=== PATIENT | female | born 1955 | race Caucasian/White ===

== ENCOUNTER → 2018-07-20 09:40 | Outpatient (REF) | payer MEDICARE, MEDICAID, SELFPAY ==
[2018-07-20 19:50] LABS: Anion Gap 8.1 mmol/L (3-11); BUN 12 mg/dL (7-18); CO2 29.9 mmol/L (21.0-32.0); CREATININE 1.05 mg/dL (0.55-1.02); Calcium 9.1 mg/dL (8.5-10.1); Chloride 101 mmol/L (98-107); Estimated GFR 53.46 (mL/min/1.73m2); Glucose 136 mg/dL (70-100); Potassium 3.3 mmol/L (3.5-5.1); Sodium 139 mmol/L (136-145)
== END ==
LOC: NCHCN 09:40
PROVIDERS: PCP Family Medicine; Visit Provider Family Medicine
DX: E87.6 Hypokalemia (principal)
CPT/HCPCS: 80048

== ENCOUNTER 2018-08-17 09:46 | Outpatient (REF) | payer MEDICARE, MEDICAID, SELFPAY ==
[2018-08-18 09:16] LABS: Anion Gap 7.1 mmol/L (3-11); BUN 15 mg/dL (7-18); CO2 33.9 mmol/L (21.0-32.0); CREATININE 1.08 mg/dL (0.55-1.02); Calcium 9.2 mg/dL (8.5-10.1); Chloride 101 mmol/L (98-107); Estimated GFR 51.58 (mL/min/1.73m2); Glucose 111 mg/dL (70-100); Potassium 3.9 mmol/L (3.5-5.1); Sodium 142 mmol/L (136-145)
== END 2018-08-17 10:06 ==
LOC: NCHCN 09:46
PROVIDERS: PCP Family Medicine; Visit Provider Family Medicine
DX: E87.6 Hypokalemia (principal)
CPT/HCPCS: 80048

== ENCOUNTER 2019-05-17 08:12 | Outpatient (REF) | payer MEDICARE, MEDICAID, SELFPAY ==
[2019-05-17 12:55] LABS: HCT 41.9 % (36.0-46.0); HGB 13.9 g/dL (12.0-15.5); Mean Corp. HGB Concentration 33.2 g/dL (32.0-36.0); Mean Corpuscular Hemoglobin 29.9 pg (27.0-33.0); Mean Corpuscular Volume 90.1 fL (80-95); Mean Platelet Volume 11.1 fL (8.0-11.0); Platelet Count 257 x1000/uL (130-400); RBC 4.65 m/cumm (4.00-5.20); RBC Distribution Width 13.2 % (11.7-14.6); White Blood Cell Count 6.74 k/cumm (4.4-10.8)
[2019-05-17 13:30] LABS: Hemoglobin A1C 5.8 % (4.5-6.2)
[2019-05-17 14:05] LABS: ALT 30 U/L (12-78); AST 27 U/L (15-37); Albumin 3.9 g/dL (3.4-5.0); Alkaline Phosphatase 61 U/L (46-116); Anion Gap 7.9 mmol/L (3-11); BUN 22 mg/dL (7-18); CO2 32.1 mmol/L (21.0-32.0); CREATININE 0.92 mg/dL (0.55-1.02); Calcium 9.2 mg/dL (8.5-10.1); Chloride 101 mmol/L (98-107); Glucose 87 mg/dL (70-100); Potassium 3.7 mmol/L (3.5-5.1); Sodium 141 mmol/L (136-145); TSH (W/Ref FT4) 2.83 uIU/mL (0.358-3.74); Total Protein 7.4 g/dL (6.4-8.2)
[2019-05-17 14:19] LABS: Bilirubin, Total 0.4 mg/dL (0.2-1.0)
== END 2019-05-17 08:32 ==
LOC: NCHCN 08:12
PROVIDERS: PCP Family Medicine; Visit Provider Family Medicine
DX: I10 Essential (primary) hypertension (principal); R73.01 Impaired fasting glucose; E06.3 Autoimmune thyroiditis
CPT/HCPCS: 80053; 85027; 83036; 84443

== ENCOUNTER 2019-06-08 10:12 | Emergency (ER) | payer MEDICARE, MEDICAID, SELFPAY ==
[2019-06-08 10:16] VITALS: BP 159/82; PULSE 78; RESP 16; TEMP 36.6; O2SAT 99
--- NOTE | 2019-06-08 10:34 | ED.GENADUL_ITS ---
Discharge Plan Disposition Patient Disposition: HOME Condition: Improving Discharge Details Chief Complaint: GenMedical Clinical Impression: Anxiety Primary Care Provider: Yumi Palam ED Provider: Jorje Chun Home Meds and New Rx's Prescriptions: Continued garlic 1 EACH tablet 1 ea PO RF: 0 omeprazole 40 MG capsule,delayed release(DR/EC) 40 mg PO DAILY Qty: 60 RF: 3 hydrochlorothiazide 25 MG tablet 25 mg PO DAILY RF: 0 ranitidine HCl 150 MG tablet 150 mg PO HS Qty: 30 RF: 0 clonazepam [Klonopin] 1 MG tablet 1 mg PO PRN PRNRF: 0 simvastatin 40 MG tablet 40 mg PO QPM RF: 0 bupropion HCl [Wellbutrin] 100 MG tablet 300 mg PO DAILY RF: 0 omega-3 fatty acids-fish oil 1 EACH capsule 1 ea PO DAILY RF: 0 buprenorphine-naloxone [Suboxone] 1 EACH film 1 film PO DAILY RF: 0 Discharge Instructions Instructions: Anxiety (ED) Additional Instructions: Please follow-up with Dr. Palma for recheck. As we discussed, you need to increase stress management in your life. Perform daily exercise and breathing exercises. Continue your regular medications. Return for any acute concern Medical Decision Making 63-year-old female with a great deal of anxiety due to family court dates afternoon, stress at home, stress regarding son's medical problems. She is noted some accompanying elevated blood pressures recently up to 160/100. Today she presented with a great deal of anxiety, was able to calm during my exam, with a blood pressure of the corrected to 148/87. Given 1 of her scheduled clonazepam with improvement. Do not feel that she requires further work-up. She will continue working to decrease stress in her life. She will follow-up with her outpatient resources. She is stable and improved HPI General Mode of arrival: ambulatory . Date/Time Provider Initiated Documentation: 06/08/19 10:17 . Limitations to Documentation: no limitations . Information obtained by: patient . History of Present Illness 63 year old F presents to the emergency department with the chief complaint of High anxiety, elevated blood pressure, described as moderate and similar to prior episodes, Quality is described as constant, Patient started experiencing this day(s) and it has been constant. No relieving factors improve symptom(s), No exacerbating factors reported . Patient notes denies chest pain, headaches, shortness of breath and weakness. Patient did receive the following treatments prior to arrival, none Related Data Home Medications Medication Instructions Recorded Confirmed bupropion HCl [Wellbutrin] 300 mg PO DAILY 07/13/13 05/10/18 clonazepam [Klonopin] 1 mg PO PRN PRN 07/13/13 05/10/18 simvastatin 40 mg PO QPM 07/13/13 05/10/18 garlic 1 ea PO NS 04/12/18 omeprazole 40 mg PO DAILY #60 tab-cap 04/12/18 05/10/18 buprenorphine-naloxone [Suboxone] 1 film PO DAILY 05/06/18 05/10/18 omega-3 fatty acids-fish oil 1 ea PO DAILY 05/06/18 05/10/18 hydrochlorothiazide 25 mg PO DAILY tab-cap NS 05/31/18 ranitidine HCl 150 mg PO HS #30 tab 06/02/18 Previous Rx's Medication Instructions Recorded ranitidine HCl 150 mg PO HS #30 tab 06/02/18 Allergies Allergy/AdvReac Type Severity Reaction Status Date / Time No Known Allergies Allergy Unverified 05/10/18 06:22 General Stated Complaint: GenMedical BILLIE: 3 Review of Systems Review of Systems No chest pain, no abdominal pain, no headache. Increased stress at home and due to family court date [facility] Medical History Abdominal pain ADHD Allergic rhinitis Anxiety Chronic low back pain Depression Fibrocystic breast disease Frequent headaches GERD (gastroesophageal reflux disease) Jorgito's thyroiditis Hepatitis B Impaired fasting glucose Opioid dependence Osteoarthritis Quit using tobacco in remote past Urinary frequency Urinary, incontinence, stress female Surgical History Abdominal hysterectomy Colonoscopy - MAC (05/10/18) EGD - MAC (05/10/18) excision, back, lipoma, 2000 nasal septoplasty 1999 r breast biopsy 1990 right hip replacement 08/2003 tubal ligation Social History Smoking/Tobacco Use Status: Former Tobacco Use Alcohol Intake: never Drug use: Occasionally Substance use type: marijuana Exam Narrative Exam Narrative: GEN: awake, alert, oriented 3. Pleasant, well groomed, interactive. HEAD: Normocephalic, atraumatic ENT: Mucous membranes moist, oropharynx unremarkable, External ear exam unremarkable EYES: PERRL, EOMI NECK: Full ROM, no DARIUS, no menigismus CHEST/RESP: Nontender, clear to auscultation bilateral, no wheeze/rhonchi/rales CARDIOVASCULAR: RRR, no murmur, rub jose armando. 2+ Rad pulse bilateral ABDOMEN: Soft, nontender, no mass. +Bowel sounds EXT: Full ROM, no edema, no rash Neuro: Grossly normal neurologic exam, conversant, interactive. Psych: Speech fluent, thoughts congruent, affect anxious Course Vital Signs Temperature 36.6 C 06/08/19 10:16 Pulse 78 06/08/19 10:16 Respiratory Rate 16 06/08/19 10:16 Blood Pressure 159/82 H 06/08/19 10:16 Pulse Oximetry 99 06/08/19 10:16 Temperature 36.6 C 06/08/19 10:16 Temperature Source Skin 06/08/19 10:16 Pulse 78 06/08/19 10:16 Respiratory Rate 16 06/08/19 10:16 Respiratory Effort Non-Labored 06/08/19 10:19 Respiratory Depth Normal 06/08/19 10:19 Respiratory Pattern Normal 06/08/19 10:19 Blood Pressure 159/82 H 06/08/19 10:16 Blood Pressure Position Sitting 06/08/19 10:16 Pulse Oximetry 99 06/08/19 10:16 Oxygen Delivery Method Room Air 06/08/19 10:16 Oxygen Flow Rate 0 06/08/19 10:16
[2019-06-08 10:39] VITALS: BP 147/87
[2019-06-08] MEDS: clonazePAM 1 MG TAB PO (10:39)
[2019-06-08 11:13] VITALS: BP 130/80; PULSE 65; RESP 16; O2SAT 100
== END 2019-06-08 11:13 | disposition home or self-care (01) ==
PROVIDERS: Emergency Provider Emergency Medicine; PCP Family Medicine
DX: F41.9 Anxiety disorder, unspecified (principal); Z65.8 Other specified problems related to psychosocial circumstances
CPT/HCPCS: 99283

== ENCOUNTER 2019-12-06 15:37 | Outpatient (REF) | payer MEDICARE, MEDICAID, SELFPAY ==
[2019-12-14 03:23] LABS: 2-OH-Ethyl-Flurazepam Negative ng/mL (Cutoff: 100); 7-NH-Flunitrazepam Negative ng/mL (Cutoff: 50); Alpha OH-Alprazolam Negative ng/mL (Cutoff: 100); Alpha-OH-Triazolam Negative ng/mL (Cutoff: 100); Lorazepam Negative ng/mL (Cutoff: 100); Temazepam Negative ng/mL (Cutoff: 100)
== END 2019-12-06 15:57 ==
LOC: NCHCN 15:37
PROVIDERS: PCP Family Medicine; Visit Provider Family Medicine
DX: F11.20 Opioid dependence, uncomplicated (principal)
CPT/HCPCS: 80346

== ENCOUNTER 2020-04-18 01:30 | Outpatient (CLI) | payer MEDICARE, MEDICAID, SELFPAY ==
--- NOTE | 2020-04-18 | DI.MAMMO_ITS ---
EXAM: MG MAMMO SCREENING CLINICAL HISTORY: SCREENING,[facility],Z00.00 TECHNIQUE: Bilateral full field digital CC and MLO mammographic images were obtained with 3D tomosyn thesis and utilizing computer aided detection (CAD). COMPARISON: Available for comparison. FINDINGS: Masses/Architectural Distortion: None seen. Stable nodularity is seen in the left retroareolar region . The asymmetric breast tissue in the supra-areolar region on the right MLO view is unchanged. Microcalcifications: No suspicious pleomorphic-type are seen. Skin Thickening/Nipple Retraction: None. IMPRESSION: 1. No significant interval change with no specific features of malignancy noted. 2. Unless there is more urgent need, screening mammography is recommended, as per [employer] guidelines. BI-RADS Category 2 - Benign Findings Breast Density - Category B - Scattered areas of fibroglandular density A negative radiographic report should not delay biopsy if a dominant or clinically suspicious mass is present. Up to ten percent of cancers are not identified on mammography. A negative report may reinforce clinical impression. Adenosis and dense breasts may obscure an underlying neoplasm. False positive reports average 6 to 10%. Patient will receive a letter notifying them of these results.
== END 2020-04-18 01:50 ==
PROVIDERS: PCP Family Medicine; Visit Provider Family Medicine
DX: Z12.31 Encounter for screening mammogram for malignant neoplasm of breast (principal)
CPT/HCPCS: 77063; 77067

== ENCOUNTER 2020-04-24 21:55 | Outpatient (REF) | payer MEDICARE, MEDICAID, SELFPAY ==
[2020-04-24 15:31] LABS: Anion Gap 7.5 mmol/L (3-11); BUN 17 mg/dL (7-18); CO2 30.5 mmol/L (21.0-32.0); CREATININE 1.04 mg/dL (0.55-1.02); Chloride 99 mmol/L (98-107); Estimated GFR 53.69 (mL/min/1.73m2); Glucose 107 mg/dL (74-106); Potassium 3.4 mmol/L (3.5-5.1); Sodium 137 mmol/L (136-145); TSH (W/Ref FT4) 2.97 uIU/mL (0.36-3.74)
[2020-04-25 11:15] LABS: Hepatitis C Ab w Rflx HCV PCR Negative (Negative)
[2020-04-25 11:18] LABS: HIV-1/2 Ag & Ab Screen Negative (Negative)
== END 2020-04-24 22:15 ==
LOC: NCHCN 21:55
PROVIDERS: PCP Family Medicine; Visit Provider Family Medicine
DX: I10 Essential (primary) hypertension (principal); R73.03 Prediabetes; E06.3 Autoimmune thyroiditis; Z11.3 Encounter for screening for infections with a predominantly sexual mode of transmission; Z11.4 Encounter for screening for human immunodeficiency virus [HIV]
CPT/HCPCS: 80048; 86803; 87389; 83036; 84443

== ENCOUNTER 2020-09-11 21:21 | Outpatient (REF) | payer MEDICARE, MEDICAID, SELFPAY ==
[2020-09-11 21:14] LABS: Hemoglobin A1C 5.9 % (<5.7)
[2020-09-11 21:17] LABS: Anion Gap 8.1 mmol/L (3-11); BUN 14 mg/dL (7-18); CO2 30.9 mmol/L (21.0-32.0); CREATININE 1.12 mg/dL (0.55-1.02); Calcium 9.4 mg/dL (8.5-10.1); Chloride 101 mmol/L (98-107); Estimated GFR 49.13 (mL/min/1.73m2); Glucose 73 mg/dL (74-106); Sodium 140 mmol/L (136-145); TSH (W/Ref FT4) 2.77 uIU/mL (0.36-3.74)
== END 2020-09-11 21:41 ==
LOC: NCHCN 21:21
PROVIDERS: PCP Family Medicine; Visit Provider Family Medicine
DX: I10 Essential (primary) hypertension (principal); R73.03 Prediabetes; E06.3 Autoimmune thyroiditis
CPT/HCPCS: 80048; 83036; 84443

== ENCOUNTER 2020-12-04 18:45 | Outpatient (REF) | payer MEDICARE, MEDICAID, SELFPAY ==
[2020-12-10 07:12] LABS: Benzoylecgonine 205 ng/mL (Cutoff: 50); Cocaine Negative ng/mL (Cutoff: 50); Cocaine Interpretation Positive.
== END 2020-12-04 19:05 ==
LOC: NCHCN 18:45
PROVIDERS: PCP Family Medicine; Visit Provider Family Medicine
DX: F11.20 Opioid dependence, uncomplicated (principal)
CPT/HCPCS: 80353

== ENCOUNTER 2021-01-14 18:49 | Emergency (ER) | payer MEDICARE, MEDICAID, SELFPAY ==
[2021-01-14] VITALS (7 sets, daily range): BP systolic 104–161; BP diastolic 71–79; PULSE 69–89; RESP 12–18; TEMP 37; O2SAT 96–100
--- NOTE | 2021-01-14 19:00 | RT.EKG_ITS ---
APPROVED REPORT Exam: Resting ECG Patient Location: E HR:81 bpm ECG Measurements Heart Rate 81 AXIS AR 226 P 54 QRSd 103 QRS 38 QT 386 T 45 QTc 449 Conclusion Sinus rhythm...normal P axis, V-rate 60- 99 Prolonged AR interval...AR >220, V-rate 50- 90
--- NOTE | 2021-01-14 19:26 | W.ED.GENAD ---
Discharge Plan Disposition Patient Disposition: HOME Condition: Stable Discharge Details Clinical Impression: Anxiety, Heart palpitations, Prolonged P-R interval Primary Care Provider: Yumi Palma ED Provider: Alexander Santillan Home Meds and New Rx's Prescriptions: Continued omeprazole 40 MG capsule,delayed release(DR/EC) 40 mg PO DAILY Qty: 60 RF: 3 hydrochlorothiazide 25 MG tablet 25 mg PO DAILY RF: 0 clonazepam [Klonopin] 1 MG tablet 1 mg PO TID PRNRF: 0 simvastatin 40 MG tablet 40 mg PO QPM RF: 0 bupropion HCl [Wellbutrin] 100 MG tablet 300 mg PO DAILY RF: 0 potassium chloride 20 mEq Tablet Extended Release 20 meq PO BID RF: 0 methylphenidate HCl 10 mg Tablet 10 mg PO BID RF: 0 omega-3 fatty acids-fish oil 1 EACH capsule 1 ea PO DAILY RF: 0 buprenorphine-naloxone [Suboxone] 1 EACH film 8 film PO DAILY RF: 0 Discharge Instructions Instructions: Heart Palpitations (ED), Anxiety (ED) Additional Instructions: Please follow-up with your primary care physician. You should have a outpatient cardiac nurse specialist assessment. Return to the ER immediately for any worsening or new concerning symptoms. Referrals: Yumi Palma MD [Primary Care Provider] - Medical Decision Making 65-year-old female here with anxiety and intermittent elevated heart rate. Considered arrhythmia. Screening ECG was reviewed and interpreted by me: Sinus rhythm 81 bpm, prolonged SC with SC interval 226, nondiagnostic. Patient observed here on the cardiac nurse specialist continuously for 45 minutes and no arrhythmia. Patient hemodynamically stable. Suspect her elevated heart rate is related to anxiety but I did advise her to decrease caffeine intake and she should have an outpatient 14-day cardiac monitoring. I will ask care management to assist in arranging follow-up with PCP and for monitoring to be initiated. Disposition decision was made weighing the risks and benefits of hospitalization versus outpatient treatment, the risk for further decompensation, and the patient's wishes. The patient was stable and requested discharge. Prior to discharge, my usual and customary return precautions were reviewed with the patient - this included follow-up instructions and reason to return to the emergency department if condition worsens, does not improve as expected, or other new concerns arise. HPI General Mode of arrival: ambulatory. Date/Time Provider Initiated Documentation: 01/14/21 19:26. Limitations to Documentation: no limitations. Information obtained by: patient. HPI Narrative: 65-year-old female presents with chief complaint of elevated heart rate. Associated anxiety. Patient notes intermittent severe anxiety with feeling like her heart is racing. She used her iPhone and noted her heart rate was in the 130s. This episode was brief. No modifiers. When she calmed down her heart rate improved. Related Data Home Medications Medication Instructions Recorded Confirmed bupropion HCl [Wellbutrin] 300 mg PO DAILY 07/13/13 01/14/21 clonazepam [Klonopin] 1 mg PO TID PRN 07/13/13 01/14/21 simvastatin 40 mg PO QPM 07/13/13 01/14/21 omeprazole 40 mg PO DAILY #60 tab-cap 04/12/18 01/14/21 buprenorphine-naloxone [Suboxone] 8 film PO DAILY 05/06/18 01/14/21 omega-3 fatty acids-fish oil 1 ea PO DAILY 05/06/18 01/14/21 hydrochlorothiazide 25 mg PO DAILY tab-cap NS 05/31/18 01/14/21 methylphenidate HCl 10 mg PO BID 01/14/21 01/14/21 potassium chloride 20 meq PO BID 01/14/21 01/14/21 Allergies Allergy/AdvReac Type Severity Reaction Status Date / Time No Known Allergies Allergy Unverified 01/14/21 19:36 General Stated Complaint: Palpitatns BILLIE: 3 Review of Systems All systems reviewed & are unremarkable except as noted in HPI and below Constitutional Constitutional: Denies fever(s) Respiratory Respiratory: Denies cough PFSH Medical History (Updated 01/14/21 @ 19:35 by Alexander Santillan MD) Abdominal pain ADHD Allergic rhinitis Anxiety Chronic low back pain Depression Fibrocystic breast disease Frequent headaches GERD (gastroesophageal reflux disease) Jorgito's thyroiditis Hepatitis B Impaired fasting glucose Opioid dependence Osteoarthritis Quit using tobacco in remote past Urinary frequency Urinary, incontinence, stress female Surgical History Abdominal hysterectomy Colonoscopy - MAC (05/10/18) EGD - MAC (05/10/18) excision, back, lipoma, 2000 nasal septoplasty 1999 r breast biopsy 1990 right hip replacement 08/2003 tubal ligation Social History Smoking/Tobacco Use Status: Former Tobacco Use Smoking risk assessment performed?: Yes Alcohol Intake: never Drug use: Occasionally Substance use type: marijuana Do you feel safe at home: Yes Do you feel safe in your relationship?: Yes Exam Const General: cooperative and no acute distress HENMT Mouth: moist mucous membranes Eyes Conjunctivae: normal conjunctivae Sclera: normal sclerae Neck Neck: trachea midline and supple Thyroid: thyroid normal Resp Auscultation: clear to auscultation bilaterally, no rales, no rhonchi and no wheezes Cardio Rate: regular rate and not tachycardic Rhythm: regular rhythm GI Palpation: soft, not firm, no guarding, no masses, not rigid and nontender Skin General skin exam: no rashes or lesions noted Neuro General: patient alert, patient awake, patient oriented x3 and tone normal Extrem General: no edema Psych Appearance: grossly normal Mental Status: mental status grossly normal Mood: anxious mood Affect: anxious affect Attitude: cooperative Thought Process: normal Thought Content: normal Insight: insight good Course Vital Signs Vital signs: Vital Signs Temperature 37 C 01/14/21 19:02 Pulse 83 01/14/21 19:02 Respiratory Rate 18 01/14/21 19:02 Blood Pressure 161/78 H 01/14/21 19:02 Pulse Oximetry 100 01/14/21 19:02 Temperature 37 C 01/14/21 19:02 Temperature Source Temporal Artery Scan 01/14/21 19:02 Pulse 83 01/14/21 19:02 Respiratory Rate 18 01/14/21 19:02 Respiratory Effort Non-Labored 01/14/21 19:07 Blood Pressure 161/78 H 01/14/21 19:02 Blood Pressure Position Sitting 01/14/21 19:02 Pulse Oximetry 100 01/14/21 19:02 Oxygen Delivery Method Room Air 01/14/21 19:02 Oxygen Flow Rate 0 01/14/21 19:02 Pain Level 0 01/14/21 19:07
--- NOTE | 2021-01-15 04:13 | NUR.NOTE ---
Nursing Note: referral to care management to follow up with pcp for a 14 day holter monitor 01/15/21 arturo
== END 2021-01-14 20:02 | disposition home or self-care (01) ==
PROVIDERS: Emergency Provider Student in an Organized Health Care Education/Training Program; PCP Family Medicine
DX: R00.2 Palpitations (principal); F41.9 Anxiety disorder, unspecified
CPT/HCPCS: 93005; 99283; 93010

== ENCOUNTER 2021-01-23 14:34 | Outpatient (CLI) | payer MEDICARE, MEDICAID, SELFPAY ==
--- NOTE | 2021-02-10 10:37 | W.ZIOMONITOR ---
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 Minimum was 55, maximum 106 There were no ventricular dysrhythmias There were very rare atrial premature beats There was no atrial fibrillation, no high-grade AV block, no pauses greater than 3 seconds Patient symptoms corresponded to sinus rhythm rate 80
== END 2021-01-23 14:35 | disposition home or self-care (01) ==
PROVIDERS: PCP Family Medicine; Visit Provider Family Medicine
DX: R00.0 Tachycardia, unspecified (principal)
CPT/HCPCS: 93246

== ENCOUNTER 2021-04-23 10:01 | Outpatient (REF) | payer MEDICARE, MEDICAID, SELFPAY ==
[2021-04-23 18:15] LABS: HCT 39.2 % (36.0-46.0); HGB 12.9 g/dL (11.2-15.7); MCH 29.4 pg (27.0-33.0); MCHC 32.9 % (32.0-36.0); MCV 89.3 fL (80-95); MPV 11.5 fL (8.0-11.0); Platelet Count 222 10^3/uL (130-400); RBC 4.39 10^6/uL (3.93-5.22); RDW 13.1 % (11.7-14.6); RDW-SD 42.8 fL; WBC 5.69 10^3/uL (4.4-10.8)
[2021-04-23 18:39] LABS: Anion Gap 9.1 mmol/L (3-11); BUN 19 mg/dL (7-18); CO2 27.9 mmol/L (21.0-32.0); CREATININE 0.9 mg/dL (0.55-1.02); Calcium 8.9 mg/dL (8.5-10.1); Chloride 104 mmol/L (98-107); Glucose 82 mg/dL (74-106); Magnesium 1.9 mg/dL (1.8-2.4); Potassium 4.1 mmol/L (3.5-5.1); Sodium 141 mmol/L (136-145); TSH (W/Ref FT4) 4.45 uIU/mL (0.36-3.74)
[2021-04-23 19:00] LABS: Hemoglobin A1C 5.9 % (<5.7)
== END 2021-04-23 10:02 | disposition home or self-care (01) ==
LOC: NCHCN 10:01
PROVIDERS: PCP Family Medicine; Visit Provider Family Medicine
DX: I10 Essential (primary) hypertension (principal); R73.03 Prediabetes; E87.6 Hypokalemia
CPT/HCPCS: 80048; 85027; 83036; 83735; 84439; 84443

== ENCOUNTER 2022-01-13 14:45 | Outpatient (REF) | payer MEDICARE, MEDICAID, SELFPAY ==
[2022-01-13 22:04] LABS: Hemoglobin A1C 5.9 % (<5.7)
[2022-01-13 22:15] LABS: ALT 38 U/L (14-59); AST 24 U/L (15-37); Alkaline Phosphatase 54 U/L (46-116); Anion Gap 7.4 mmol/L (3-11); BUN 18 mg/dL (7-18); Bilirubin, Total 0.3 mg/dL (0.2-1.0); CO2 32.6 mmol/L (21.0-32.0); CREATININE 0.9 mg/dL (0.55-1.02); Calcium 9.4 mg/dL (8.5-10.1); Calculated LDL 140 mg/dL (<100); Chloride 100 mmol/L (98-107); Cholesterol 235 mg/dL (<200); Glucose 96 mg/dL (74-106); HDL Cholesterol 77 mg/dL (40-60); Potassium 3.9 mmol/L (3.5-5.1); Sodium 140 mmol/L (136-145); TSH (W/Ref FT4) 3.32 uIU/mL (0.36-3.74); Total Protein 7.7 g/dL (6.4-8.2); Triglyceride 92 mg/dL (<150)
== END 2022-01-13 14:46 | disposition home or self-care (01) ==
LOC: NCHCN 14:45
PROVIDERS: PCP Family Medicine; Visit Provider Family Medicine
DX: I10 Essential (primary) hypertension (principal); R73.03 Prediabetes; E06.3 Autoimmune thyroiditis
CPT/HCPCS: 80053; 80061; 83036; 84443

== ENCOUNTER 2022-05-14 18:26 | Outpatient (REF) | payer MEDICARE, MEDICAID, SELFPAY ==
[2022-05-14 16:19] LABS: Bilirubin Negative (Negative); Blood Small (Negative); Clarity Sl Cloudy (Clear); Glucose Negative (Negative); Ketones Negative (Negative); Leukocyte Esterase Trace (Negative); Nitrite Negative (Negative); Specific Gravity 1.025 (1.005-1.025); Urobilinogen 0.2 EU/dL (Up TO 0.2)
[2022-05-14 16:29] LABS: Bacteria Many HPF (Negative); C & S Indicated? Yes; Casts Negative LPF (Negative); Crystals Negative HPF (Negative); Epithelial Cells Few HPF (Negative); Mucus Negative (Negative)
[2022-05-18 12:59] LABS: 2-OH-Ethyl-Flurazepam Negative ng/mL (Cutoff: 10); 7-NH-Clonazepam 856 ng/mL (Cutoff: 10); 7-NH-Flunitrazepam Negative ng/mL (Cutoff: 10); Alpha OH-Alprazolam Negative ng/mL (Cutoff: 10); Alpha-OH Midazolam Negative ng/mL (Cutoff: 10); Alpha-OH-Triazolam Negative ng/mL (Cutoff: 10); Alprazolam Negative ng/mL (Cutoff: 10); Benzodiazepines Interpretation Positive.; Chlordiazepoxide Negative ng/mL (Cutoff: 10); Clobazam Negative ng/mL (Cutoff: 10); Clonazepam 14 ng/mL (Cutoff: 10); Diazepam Negative ng/mL (Cutoff: 10); Flurazepam Negative ng/mL (Cutoff: 10); Lorazepam Negative ng/mL (Cutoff: 10); Midazolam Negative ng/mL (Cutoff: 10); N-Desmethylclobazam Negative ng/mL (Cutoff: 10); Prazepam Negative ng/mL (Cutoff: 10); Temazepam Negative ng/mL (Cutoff: 10); Triazolam Negative ng/mL (Cutoff: 10); Zolpidem Carboxylic acid Negative ng/mL (Cutoff: 10)
[2022-05-19 12:38] LABS: Codeine Negative ng/mL (Cutoff: 25); Dihydrocodeine Negative ng/mL (Cutoff: 25); Hydrocodone Negative ng/mL (Cutoff: 25); Hydromorphone Negative ng/mL (Cutoff: 25); Morphine Negative ng/mL (Cutoff: 25); Naloxone 963 ng/mL (Cutoff: 25); Norhydrocodone Negative ng/mL (Cutoff: 25); Noroxycodone Negative ng/mL (Cutoff: 25); Noroxymorphone 67 ng/mL (Cutoff: 25); Opiates Interpretation Positive.
[2022-05-21 09:16] LABS: Benzoylecgonine 245 ng/mL (Cutoff: 50); Cocaine Negative ng/mL (Cutoff: 50); Cocaine Interpretation Positive.
== END 2022-05-14 18:27 | disposition home or self-care (01) ==
LOC: NCHCN 18:26
PROVIDERS: PCP Family Medicine; Visit Provider Family Medicine
DX: F11.20 Opioid dependence, uncomplicated (principal)
CPT/HCPCS: 80361; 80362; 80365; 87077; 80346; 80353; 81003; 81015; 87086; 87186

== ENCOUNTER 2022-12-02 13:09 | Outpatient (REF) | payer MEDICARE, MEDICAID, SELFPAY ==
[2022-12-02 15:28] LABS: Bilirubin Negative (Negative); Blood Negative (Negative); Clarity Clear (Clear); Glucose Negative (Negative); Ketones Negative (Negative); Leukocyte Esterase Trace (Negative); Nitrite Negative (Negative); Specific Gravity 1.025 (1.005-1.025); Urobilinogen 0.2 EU/dL (Up TO 0.2)
[2022-12-02 15:37] LABS: Bacteria Moderate HPF (Negative); C & S Indicated? Yes; Casts Negative LPF (Negative); Crystals Negative HPF (Negative); Epithelial Cells Rare HPF (Negative); Mucus Negative (Negative); RBC Negative HPF (0-2)
== END 2022-12-02 13:10 | disposition home or self-care (01) ==
LOC: NCHCN 13:09
PROVIDERS: PCP Family Medicine; Visit Provider Family Medicine
DX: N39.0 Urinary tract infection, site not specified (principal)
CPT/HCPCS: 87077; 81003; 81015; 87086; 87186

== ENCOUNTER 2023-02-24 13:02 | Outpatient (REF) | payer MEDICARE, MEDICAID, SELFPAY ==
[2023-02-24 14:56] LABS: HGB 13.8 g/dL (11.2-15.7); MCH 30.5 pg (27.0-33.0); MCHC 34.5 % (32.0-36.0); MCV 88 fL (80-95); MPV 10.9 fL (8.0-11.0); Platelet Count 205 10^3/uL (130-400); RBC 4.53 10^6/uL (3.93-5.22); RDW 12.8 % (11.7-14.6); RDW-SD 41.6 fL; WBC 5.58 10^3/uL (4.4-10.8)
[2023-02-24 15:02] LABS: Bilirubin Negative (Negative); Blood Negative (Negative); Clarity Cloudy (Clear); Glucose Negative (Negative); Ketones Negative (Negative); Leukocyte Esterase Trace (Negative); Nitrite Positive (Negative); Urobilinogen 0.2 mg/dL (Up to 0.2); pH 7.5 (5-8)
[2023-02-24 15:17] LABS: BUN 16 mg/dL (7-18); Calcium 9.7 mg/dL (8.5-10.1); Chloride 101 mmol/L (98-107); Estimated GFR 62.52 (mL/min/1.73m2); Glucose 92 mg/dL (74-106); Potassium 3.5 mmol/L (3.5-5.1); Sodium 140 mmol/L (136-145); TSH (W/Ref FT4) 2.55 uIU/mL (0.36-3.74)
[2023-02-24 15:19] LABS: Hemoglobin A1C 6.1 % (<5.7)
[2023-02-24 15:30] LABS: Bacteria Moderate HPF (Negative); Epithelial Cells Negative HPF (Negative); Other Cells Negative (Negative); RBC Negative HPF (0-2)
[2023-02-24 15:31] LABS: C & S Indicated? C&S Done As Ordered; Casts Negative LPF (Negative); Crystals Many Amorphous HPF (Negative); Mucus Negative (Negative)
== END 2023-02-24 13:03 | disposition home or self-care (01) ==
LOC: NCHCN 13:02
PROVIDERS: PCP Family Medicine; Visit Provider Family Medicine
DX: I10 Essential (primary) hypertension (principal); R73.03 Prediabetes; E87.6 Hypokalemia; N39.0 Urinary tract infection, site not specified
CPT/HCPCS: 80048; 85027; 87077; 81003; 81015; 83036; 84443; 87086; 87186

== ENCOUNTER 2023-04-12 01:06 | Outpatient (CLI) | payer MEDICARE, MEDICAID, SELFPAY ==
--- NOTE | 2023-04-12 | DI.MAMMO_ITS ---
Exam(s) MAMMO SCREENING EXAM: MAMMO SCREENING CLINICAL HISTORY: SCREENING, Z12.31 TECHNIQUE: Mammograms were interpreted according to the usual protocol including computer analysis w [employer] CAD system, tomosynthesis and C-view imaging. COMPARISON: 2013 through 2019 FINDINGS: The breasts are composed of scattered fibroglandular densities, Breast Density category B. No suspicious masses or suspicious microcalcifications are seen. Stable findings of fat necrosis in the anterior left breast. Stable area of nodularity upper outer anterior right breast. No skin thickening or abnormal axillary lymph nodes are seen. There has been no significant change from prior exams. IMPRESSION: BI-RADS Cat 2 - Benign Findings Breast Density - Category B, scattered fibroglandular densities. A negative radiographic report should not delay biopsy if a dominant or clinically suspicious mass is present. Up to ten percent of cancers are not identified on mammography. A negative report may reinforce clinical impression. Adenosis and dense breasts may obscure an underlying neoplasm. False positive reports average 6 to 10%. Patient will receive a letter notifying them of these results.
== END 2023-04-12 01:26 ==
LOC: DI 01:08
PROVIDERS: PCP Family Medicine; Visit Provider Family Medicine
DX: Z12.31 Encounter for screening mammogram for malignant neoplasm of breast (principal)
CPT/HCPCS: 77063; 77067

== ENCOUNTER 2024-03-06 13:27 | Outpatient (REF) | payer MEDICARE, MEDICAID, SELFPAY ==
[2024-03-06 19:52] LABS: ALT 35 U/L (14-59); AST 22 U/L (15-37); Alkaline Phosphatase 60 U/L (46-116); Anion Gap 10.1 mmol/L (3-11); BUN 19 mg/dL (7-18); Bilirubin, Total 0.3 mg/dL (0.2-1.0); CO2 28.9 mmol/L (21.0-32.0); CREATININE 0.9 mg/dL (0.55-1.02); Calcium 10.4 mg/dL (8.5-10.1); Chloride 102 mmol/L (98-107); Estimated GFR 70.51 (mL/min/1.73m2); FREE T4 0.99 ng/dL (0.76-1.46); Glucose 99 mg/dL (74-106); Potassium 3.3 mmol/L (3.5-5.1); Sodium 141 mmol/L (136-145); TSH 2.63 uIU/Ml (0.36-3.74); Total Protein 7.9 g/dL (6.4-8.2)
== END 2024-03-06 13:28 | disposition home or self-care (01) ==
LOC: NCHCN 13:27
PROVIDERS: PCP Family Medicine; Visit Provider Family Medicine
DX: R73.03 Prediabetes (principal); E06.3 Autoimmune thyroiditis
CPT/HCPCS: 80053; 83036; 84439; 84443

== ENCOUNTER 2024-05-29 15:09 | Outpatient (REF) | payer MEDICARE, SELFPAY ==
[2024-05-29 18:57] LABS: Bilirubin Negative (Negative); Blood Negative (Negative); Clarity Clear (Clear); Glucose Negative (Negative); Ketones Negative (Negative); Leukocyte Esterase Negative (Negative); Nitrite Positive (Negative); Urobilinogen 0.2 mg/dL (Up to 0.2)
[2024-05-29 19:05] LABS: WBC 0-2 HPF (0-5)
[2024-05-29 19:06] LABS: Bacteria Many HPF (Negative); C & S Indicated? No; Casts Negative LPF (Negative); Crystals Negative HPF (Negative); Epithelial Cells Rare HPF (Negative); Mucus Negative (Negative); RBC Negative HPF (0-2)
== END 2024-05-29 15:10 | disposition home or self-care (01) ==
LOC: NCHCN 15:09
PROVIDERS: PCP Family Medicine; Visit Provider Family Medicine
DX: N39.0 Urinary tract infection, site not specified (principal)
CPT/HCPCS: 81003; 81015

== ENCOUNTER 2024-06-27 15:36 | Outpatient (REF) | payer MEDICARE, MEDICAID, SELFPAY ==
[2024-06-27 21:39] LABS: Anion Gap 9.5 mmol/L (3-11); BUN 21 mg/dL (7-18); CO2 28.5 mmol/L (21.0-32.0); CREATININE 0.9 mg/dL (0.55-1.02); Calcium 9.5 mg/dL (8.5-10.1); Chloride 103 mmol/L (98-107); Estimated GFR 70.51 (mL/min/1.73m2); Glucose 88 mg/dL (74-106); Sodium 141 mmol/L (136-145)
== END 2024-06-27 15:37 | disposition home or self-care (01) ==
LOC: NCHCN 15:36
PROVIDERS: PCP Family Medicine; Visit Provider Family Medicine
DX: I10 Essential (primary) hypertension (principal)
CPT/HCPCS: 80048

== ENCOUNTER → 2024-09-14 08:44 | Outpatient (BNVA) | payer MEDICARE, MEDICAID, SELFPAY | PROVIDERS: PCP Family Medicine; Referring Provider Family Medicine; Visit Provider Podiatrist | DX: L60.3 Nail dystrophy (principal); B35.1 Tinea unguium | CPT/HCPCS: 99204 ==

== ENCOUNTER 2024-11-03 15:38 | Outpatient (REF) | payer MEDICARE, MEDICAID, SELFPAY ==
[2024-11-03 16:39] LABS: Bacteria Rare HPF (Negative); Epithelial Cells Few HPF (Negative); RBC Negative HPF (0-2); WBC 0-2 HPF (0-5)
[2024-11-03 16:40] LABS: C & S Indicated? C&S Done As Ordered
== END 2024-11-03 15:39 | disposition home or self-care (01) ==
LOC: LBN 15:38
PROVIDERS: PCP Family Medicine; Visit Provider Physician Assistant Medical
DX: R30.0 Dysuria (principal)
CPT/HCPCS: 81015; 87086; 87480; 87510; 87660

== ENCOUNTER 2024-11-13 15:30 | Outpatient (REF) | payer MEDICARE, MEDICAID, SELFPAY ==
[2024-11-13 20:30] LABS: Bilirubin Negative (Negative); Blood Negative (Negative); Clarity Clear (Clear); Glucose Negative (Negative); Ketones Negative (Negative); Leukocyte Esterase Negative (Negative); Nitrite Negative (Negative); Specific Gravity 1.015 (1.005-1.025); Urobilinogen 0.2 mg/dL (Up to 0.2)
== END 2024-11-13 15:31 | disposition home or self-care (01) ==
LOC: NCHCN 15:30
PROVIDERS: PCP Family Medicine; Visit Provider Family Medicine
DX: R10.9 Unspecified abdominal pain (principal)
CPT/HCPCS: 81003

== ENCOUNTER → 2025-01-18 09:36 | Outpatient (BNVA) | payer MEDICARE, MEDICAID, SELFPAY | PROVIDERS: PCP Family Medicine; Referring Provider Family Medicine; Visit Provider Podiatrist | DX: L60.3 Nail dystrophy (principal); B35.1 Tinea unguium | CPT/HCPCS: 99213 ==

== ENCOUNTER 2025-02-05 15:14 | Outpatient (REF) | payer MEDICARE, MEDICAID, SELFPAY ==
[2025-02-05 21:44] LABS: COMMENT (LAB VIEW ONLY) 54.56 mg/dL; Microalb ug/mg Crea 7.1 ug/mg Cr
== END 2025-02-05 15:15 | disposition home or self-care (01) ==
LOC: NCHCN 15:14
PROVIDERS: PCP Family Medicine; Visit Provider Family Medicine
DX: I10 Essential (primary) hypertension (principal)
CPT/HCPCS: 82043; 82570

== ENCOUNTER 2025-05-02 09:59 | Outpatient (REF) | payer MEDICARE, MEDICAID, SELFPAY ==
[2025-05-02 15:34] LABS: HGB 14.2 g/dL (11.2-15.7); MCH 29.8 pg (27.0-33.0); MCV 90 fL (80-95); MPV 10.6 fL (8.0-11.0); Platelet Count 252 10^3/uL (130-400); RBC 4.76 10^6/uL (3.93-5.22); RDW 12.7 % (11.7-14.6); RDW-SD 42.1 fL; WBC 5.31 10^3/uL (4.4-10.8)
[2025-05-02 15:51] LABS: ALT 68 U/L (14-59); AST 48 U/L (15-37); Alkaline Phosphatase 76 U/L (46-116); Anion Gap 4.6 mmol/L (3-11); BUN 23 mg/dL (7-18); Bilirubin, Total 0.5 mg/dL (0.2-1.0); CO2 30.4 mmol/L (21.0-32.0); CREATININE 1.2 mg/dL (0.55-1.02); Calcium 9.2 mg/dL (8.5-10.1); Calculated LDL 113 mg/dL (<100); Chloride 101 mmol/L (98-107); Cholesterol 203 mg/dL (<200); Estimated GFR 49.61 (mL/min/1.73m2); Glucose 93 mg/dL (74-106); HDL Cholesterol 81 mg/dL (>or=50); Potassium 4.3 mmol/L (3.5-5.1); Sodium 136 mmol/L (136-145); Total Protein 7.6 g/dL (6.4-8.2); Triglyceride 46 mg/dL (<150)
[2025-05-02 16:00] LABS: Uric Acid 7.2 mg/dL (2.6-6.0)
== END 2025-05-02 10:00 | disposition home or self-care (01) ==
LOC: NCHCN 09:59
PROVIDERS: PCP Family Medicine; Visit Provider Family Medicine
DX: E78.5 Hyperlipidemia, unspecified (principal); R73.03 Prediabetes; M79.675 Pain in left toe(s)
CPT/HCPCS: 80053; 80061; 85027; 83036; 84550

== ENCOUNTER 2025-05-09 01:47 | Outpatient (CLI) | payer MEDICARE, MEDICAID, SELFPAY ==
--- NOTE | 2025-05-09 | DI.RAD_ITS ---
Exam(s) XR TOE LT GREAT EXAM: XR TOE LT GREAT CLINICAL HISTORY: PAIN LT GREAT TOE,M79.675,? GOUT. TECHNIQUE: 2D digital imaging was performed. Three images of the great toe were obtained. COMPARISON: No exams were available for comparison FINDINGS: BONES: No acute fracture is present. No bony destructive lesion is seen. JOINTS: No dislocation present. Degenerative changes are seen at the 1st MTP joint characterized by joint space narrowing and osteophytes. No erosions are present. There are arthritic changes also se en at the interphalangeal joint of the great toe. SOFT TISSUE: Normal. IMPRESSION: Osteoarthritis of the great toe. No changes to suggest an inflammatory arthritis. DATA REPOSITORY: RADIATION DOSE DELIVERED:
== END 2025-05-09 02:07 ==
LOC: DI 01:47
PROVIDERS: PCP Family Medicine; Visit Provider Family Medicine
DX: M19.072 Primary osteoarthritis, left ankle and foot (principal)
CPT/HCPCS: 73660

== ENCOUNTER 2025-07-27 15:37 | Outpatient (REF) | payer MEDICARE, MEDICAID, SELFPAY ==
[2025-07-27 15:56] LABS: ALT 41 U/L (14-59); AST 30 U/L (15-37); Albumin 3.8 g/dL (3.4-5.0); Alkaline Phosphatase 67 U/L (46-116); Anion Gap 7.4 mmol/L (3-11); BUN 19 mg/dL (7-18); Bilirubin, Total 0.4 mg/dL (0.2-1.0); CO2 29.6 mmol/L (21.0-32.0); Calcium 9.2 mg/dL (8.5-10.1); Chloride 104 mmol/L (98-107); Estimated GFR 70.07 (mL/min/1.73m2); Glucose 90 mg/dL (74-106); Potassium 4.4 mmol/L (3.5-5.1); Sodium 141 mmol/L (136-145); Total Protein 7.0 g/dL (6.4-8.2)
== END 2025-07-27 15:38 | disposition home or self-care (01) ==
LOC: NCHCN 15:37
PROVIDERS: PCP Family Medicine; Visit Provider Family Medicine
DX: R74.8 Abnormal levels of other serum enzymes (principal)
CPT/HCPCS: 80053

== ENCOUNTER 2025-08-16 13:43 | Outpatient (REF) | payer MEDICARE, MEDICAID, SELFPAY ==
[2025-08-16 15:41] LABS: Glucose Negative (Negative)
== END 2025-08-16 13:44 | disposition home or self-care (01) ==
LOC: NCHCN 13:43
PROVIDERS: PCP Family Medicine; Visit Provider Family Medicine
DX: R35.0 Frequency of micturition (principal); N89.8 Other specified noninflammatory disorders of vagina
CPT/HCPCS: 81003; 87480; 87510; 87660